=== PATIENT | male | born 1940 | race Two or more races ===

== ENCOUNTER 2018-12-16 09:41 | Outpatient (CLI) | payer OTHER | END 2018-12-16 09:51 | disposition home or self-care (01) | LOC: RAD 501 09:41 | DX: M17.11 Unilateral primary osteoarthritis, right knee (principal); M16.11 Unilateral primary osteoarthritis, right hip; M75.21 Bicipital tendinitis, right shoulder; M75.102 Unspecified rotator cuff tear or rupture of left shoulder, not specified as traumatic ==